=== PATIENT | female | born 1955 | race Caucasian/White ===

== ENCOUNTER 2017-05-23 16:14 | Outpatient (CLI) | payer MEDICARE ==
--- NOTE | 2017-05-23 20:20 | XRAY Report ---
EXAM: CHEST RADIOGRAPHY EXAM DATE: 05/23/2017 04:31 PM. CLINICAL HISTORY: Chest pressure. Dyspnea. COMPARISON: 03/24/2016. TECHNIQUE: 2 views. FINDINGS: Lungs/Pleura: No focal opacities evident. No pleural effusion. No pneumothorax. Normal volumes. Mediastinum: Heart and mediastinal contours are unremarkable. Other: No compression fractures. IMPRESSION: Normal 2-view chest radiography. [facility] Referring Provider Line: [phone] SITE ID: [id number]
== END 2017-05-23 16:15 | disposition home or self-care (01) ==
LOC: DI 16:14
PROVIDERS: ATTEND Internal Medicine
DX: R06.00 Dyspnea, unspecified (principal)
CPT/HCPCS: 71020

== ENCOUNTER 2017-05-30 08:00 | Outpatient (CLI) | payer MEDICARE ==
[2017-05-30 13:17] LABS: ABG ANALYSIS TIME 1309; ABG PCO2 37 mmHg (34-45); ABG PH 7.42 (7.35-7.45); ABG PO2 104 mmHg (80-100)
[2017-05-30 13:18] LABS: ABG HCO3 23.8 mmol/L (22.0-26.0); ABG OXYGEN SATURATION 98 % (94-98); ALLEN TEST POSITIVE
[2017-05-30 13:19] LABS: ABG ROOM AIR YES; ABG SITE OF DRAW RIGHT RADIAL
== END 2017-05-30 08:01 | disposition home or self-care (01) ==
LOC: LAB.R 08:00
PROVIDERS: ATTEND Internal Medicine
DX: R06.00 Dyspnea, unspecified (principal)
CPT/HCPCS: 82803

== ENCOUNTER 2017-05-30 12:48 | Outpatient (CLI) | payer MEDICARE ==
[2017-05-30] MEDS ORDERED: ALBUTEROL NEB 2.5 MG/3 ML INH ONE (14:00)
== END 2017-05-30 12:49 | disposition home or self-care (01) ==
LOC: RT 12:48
PROVIDERS: ATTEND Internal Medicine
DX: R06.00 Dyspnea, unspecified (principal)
CPT/HCPCS: 36600; 94010

== ENCOUNTER 2017-10-12 07:28 | Outpatient (CLI) | payer MEDICARE ==
[2017-10-12 08:03] LABS: BASOPHILS % (AUTO) 0.4 %; EOSINOPHILS # (AUTO) 0.1 10^3/uL (0.0-0.7); EOSINOPHILS % (AUTO) 1.5 %; HGB - HEMOGLOBIN 13.3 g/dL (12.0-16.0); LYMPHOCYTES # (AUTO) 1.4 10^3/uL (1.5-3.5); LYMPHOCYTES % (AUTO) 16.7 %; MEAN CORPUSCULAR HEMOGLOBIN 29.9 pg (27.0-31.0); MEAN CORPUSCULAR HGB CONC 34.4 g/dL (32.0-36.0); MEAN PLATELET VOLUME 6.4 fL (7.9-10.8); MONOCYTES # (AUTO) 0.6 10^3/uL (0.0-1.0); MONOCYTES % (AUTO) 7.5 %; NEUTROPHILS # (AUTO) 6.1 10^3/uL (1.5-6.6); NEUTROPHILS % (AUTO) 73.9 %; PLT - PLATELET COUNT 382 10^3/uL (130-450); RED BLOOD COUNT 4.45 10^6/uL (4.20-5.40); WHITE BLOOD COUNT 8.2 x10^3/uL (4.8-10.8)
[2017-10-12 08:08] LABS: HB2 TOTAL 14.3 g/dL; HEMOGLOBIN A1C 0.56 g/dL; HEMOGLOBIN A1C % 5.7 % (4.6-6.2)
[2017-10-12 08:16] LABS: ALBUMIN 4.5 g/dL (3.2-5.5); ALBUMIN/GLOBULIN RATIO 1.5 (1.0-2.2); ALKALINE PHOSPHATASE 72 IU/L (42-121); ALT ALANINE AMINOTRANSFERASE 18 IU/L (10-60); AST ASPARTATE AMINOTRANSFERASE 23 IU/L (10-42); BILIRUBIN,TOTAL 0.7 mg/dL (0.2-1.0); BUN - BLOOD UREA NITROGEN 8 mg/dL (6-20); CALCIUM 9.5 mg/dL (8.5-10.3); CARBON DIOXIDE - CO2 23 mmol/L (21-32); CHLORIDE 98 mmol/L (101-111); CHOLESTEROL 195 mg/dL; CREATININE 0.7 mg/dL (0.4-1.0); GFR - MDRD 84 (>89); GLUCOSE 117 mg/dL (70-100); HDL CHOLESTEROL 66 mg/dL; LDL CHOLESTEROL,CALCULATED 120 mg/dL; LDL/HDL RATIO 1.8 (<4.4); SODIUM 130 mmol/L (135-145); TOTAL PROTEIN 7.5 g/dL (6.7-8.2); VLDL CHOLESTEROL 9 mg/dL
[2017-10-12 09:06] LABS: THYROID STIMULATING HORMONE 1.18 uIU/mL (0.34-5.60)
[2017-10-12 09:10] LABS: FREE T4 (FREE THYROXINE) 1.34 ng/dL (0.58-1.64)
== END 2017-10-12 07:29 | disposition home or self-care (01) ==
LOC: LAB 07:28
PROVIDERS: ATTEND Internal Medicine
DX: Z00.00 Encounter for general adult medical examination without abnormal findings (principal); R53.83 Other fatigue; F32.9 Major depressive disorder, single episode, unspecified; F41.9 Anxiety disorder, unspecified; M06.9 Rheumatoid arthritis, unspecified; R73.01 Impaired fasting glucose; L71.9 Rosacea, unspecified
CPT/HCPCS: 36415; 80053; 80061; 82607; 83036; 84439; 84443; 84481; 85025; 86376

== ENCOUNTER 2018-08-15 12:56 | Outpatient (CLI) | payer MEDICARE ==
--- NOTE | 2018-08-15 15:40 | XRAY Report ---
Reason: NECK PAIN Procedure Date: 08/15/2018 Accession Number: [id number] / [id number] Procedure: XR - Neck Soft Tissue CPT Code: FULL RESULT: EXAM: SOFT TISSUE NECK RADIOGRAPHY EXAM DATE: 08/15/2018 01:18 PM. CLINICAL HISTORY: Neck pain. COMPARISONS: None. TECHNIQUE: 2 views. FINDINGS: Soft Tissues: There is a BB over the posterior midline of the neck at the level of C4-C5. There is a subtle 12 mm convex soft tissue density mass seen only on the lateral projection superimposing just posterior to the posterior muscles. No prevertebral soft tissue swelling. The epiglottis and aryepiglottic folds are unremarkable. No tonsillar or adenoidal enlargement. No radiopaque foreign body. Regional Skeleton: Unremarkable for age. Other: The visualized lung apices are clear. IMPRESSION: Indeterminate 12 mm soft tissue mass of the posterior neck as described. Specificity is limited on plain film radiographs and would favor further evaluation with cross-sectional imaging either ultrasound or CT with contrast. [facility]
== END 2018-08-15 12:57 | disposition home or self-care (01) ==
LOC: DI 12:56
PROVIDERS: ATTEND Internal Medicine
DX: R22.1 Localized swelling, mass and lump, neck (principal); M54.2 Cervicalgia
CPT/HCPCS: 70360

== ENCOUNTER 2018-08-28 15:48 | Outpatient (CLI) | payer MEDICARE ==
--- NOTE | 2018-08-29 13:38 | Ultrasound Report ---
Reason: MASS ON POSTERIOR NECK Procedure Date: 08/28/2018 Accession Number: [id number] / [id number] Procedure: US - Head or Neck Soft Tissue CPT Code: FULL RESULT: EXAM: FOCUS SOFT TISSUE NECK ULTRASOUND. EXAM DATE: 08/28/2018 04:27 PM. CLINICAL HISTORY: Mass on posterior neck. COMPARISON: None. TECHNIQUE: Real time sonographic imaging of the thyroid was performed by the guest relations officer. Multiple inventory representative static images were saved for review. FINDINGS: A palpable lump in the posterior neck was interrogated by grayscale and limited color Doppler ultrasound. Normal soft tissues are seen. No abnormal structures, mass or collection is identified. There is no abnormal blood flow by limited color Doppler. IMPRESSION: Normal study. [facility]
== END 2018-08-28 15:49 | disposition home or self-care (01) ==
LOC: DI 15:48
PROVIDERS: ATTEND Internal Medicine
DX: R22.1 Localized swelling, mass and lump, neck (principal); M54.2 Cervicalgia
CPT/HCPCS: 76536

== ENCOUNTER 2018-10-13 09:04 | Outpatient (CLI) | payer MEDICARE ==
--- NOTE | 2018-10-13 14:44 | MRI Report ---
Reason: NECK PAIN, MASS Procedure Date: 10/13/2018 Accession Number: [id number] / [id number] Procedure: MRI - Cervical Spine W/O CPT Code: FULL RESULT: EXAM: MRI CERVICAL SPINE WITHOUT CONTRAST EXAM DATE: 10/13/2018 09:51 AM. CLINICAL HISTORY: Neck pain, mass. COMPARISONS: None. TECHNIQUE: Multiplanar, multisequence T1-weighted and fluid-sensitive sequences of the cervical spine without contrast. Other: None. FINDINGS: Neurologic Structures: The visualized posterior fossa structures are unremarkable. No signal abnormality in the visualized spinal cord. Alignment: No scoliosis or spondylolisthesis. Bone Marrow: No gross fractures or bone lesions. No marrow edema. Interspace Levels/Facets: C1-C2: Unremarkable. C2-C3: Unremarkable. C3-C4: Unremarkable. C4-C5: Unremarkable. C5-C6: Some disk dehydration, broad-based disk bulge is seen. No central stenosis. Moderate bilateral foraminal stenosis. C6-C7: Broad-based disk bulge is seen. Prominent facets. No central or foraminal stenosis. C7-T1: Unremarkable. Musculature: Mild fatty atrophy of the multifidus muscle is present. Other: The paravertebral and prevertebral soft tissues are normal. In particular, focal area of concern marked with an MRI marker shows normal anatomy. No masses or nodules in this location. IMPRESSION: 1. Spinal cord, bones and marrow appear unremarkable. There is mild fatty atrophy of the multifidus muscle present. 2. C5-C6 show some disk dehydration. No central stenosis. Moderate bilateral foraminal stenosis. 3. C6-C7 shows a broad-based bulge, no stenosis. 4. C7-T1 is normal. [facility]
== END 2018-10-13 09:05 | disposition home or self-care (01) ==
LOC: DI 09:04
PROVIDERS: ATTEND Internal Medicine
DX: M50.322 Other cervical disc degeneration at C5-C6 level (principal); M48.02 Spinal stenosis, cervical region; G12.9 Spinal muscular atrophy, unspecified
CPT/HCPCS: 72141

== ENCOUNTER 2019-06-16 15:34 | Outpatient (CLI) | payer MEDICARE ==
--- NOTE | 2019-06-16 16:33 | XRAY Report ---
Reason: COUGH Procedure Date: 06/16/2019 Accession Number: [id number] / [id number] Procedure: XR - Chest 2 View X-Ray CPT Code: 78091 FULL RESULT: EXAM: CHEST RADIOGRAPHY EXAM DATE: 06/16/2019 04:22 PM. CLINICAL HISTORY: Cough COMPARISON: CHEST 2 VIEW PA/LAT 05/23/2017 4:22 PM. TECHNIQUE: 2 views. FINDINGS: Lungs/Pleura: No focal opacities evident. No pleural effusion. No pneumothorax. Normal volumes. A nodular density projected in left upper peripheral hemithorax is likely artifactual. Mediastinum: Heart and mediastinal contours are unremarkable. Other: None. IMPRESSION: A nodular density projected in left upper peripheral hemithorax is likely artifactual. A repeat radiograph to be considered after removal of any external monitoring device or clothing. No acute cardiopulmonary process. [facility] The call report notification system was initiated by Dr. Thuy Blackwell at 04:32 PM on 06/16/2019. ADDENDUM: 06/16/19 16:33 The above call report findings were discussed with Dr Torres by Dr. Thuy Blackwell at 04:33 PM on 06/16/2019.
== END 2019-06-16 15:35 | disposition home or self-care (01) ==
LOC: DI 15:34
PROVIDERS: ATTEND Internal Medicine
DX: R05 Cough (principal)
CPT/HCPCS: 71046

== ENCOUNTER 2019-06-29 17:04 | Outpatient (CLI) | payer MEDICARE ==
--- NOTE | 2019-06-29 19:53 | XRAY Report ---
Reason: COUGH, CHILLS WITHOUT FEVER Procedure Date: 06/29/2019 Accession Number: [id number] / [id number] Procedure: XR - Chest 2 View X-Ray CPT Code: 71507 FULL RESULT: EXAM: CHEST RADIOGRAPHY EXAM DATE: 06/29/2019 05:28 PM. CLINICAL HISTORY: COUGH, CHILLS WITHOUT FEVER. COMPARISON: CHEST 2 VIEW 06/16/2019 4:17 PM. TECHNIQUE: 2 views. FINDINGS: Lungs/Pleura: No focal opacities evident. No pleural effusion. No pneumothorax. Normal volumes. Mediastinum: Heart and mediastinal contours are unremarkable. Other: None. IMPRESSION: Negative 2-view chest radiography. [facility]
== END 2019-06-29 17:05 | disposition home or self-care (01) ==
LOC: DI 17:04
PROVIDERS: ATTEND Internal Medicine
DX: R05 Cough (principal); R68.83 Chills (without fever)
CPT/HCPCS: 71046

== ENCOUNTER 2020-07-03 11:22 | Emergency (ER) | payer MEDICAID ==
[2020-07-03 11:34] VITALS: BP 142/86
--- NOTE | 2020-07-03 11:58 | ED Physician Documentation ---
History of Present Illness - Stated complaint Stated Complaint: RASH - Chief complaint Chief Complaint: General - History obtained from History obtained from: Patient - History of Present Illness Timing: Prior to arrival - Additonal information Additional information: 64-year-old female advised to come to the emergency department for evaluation of reported fever and rash. She reports that 4 days ago she began having intermittent fevers as high as 101 at home, chills myalgias and fatigue. She noted that yesterday in the a.m. she had a mild rash on her right thigh. She was started on Lamictal approximately 3 weeks ago for history of bipolar disorder. She called her psychiatric provider this a.m. to discuss the fever and rash and was advised to come to the emergency department. Reports that she noted a non painful, non blistering rash on her right leg yesterday. On exam the rad is 3 separate small raised papule that surround a hair follicule. non pustular, non vesicular Patient denies chest pain or dyspnea. She does have a mild dry cough. No abdominal pain nausea vomiting or diarrhea. She denies urinary urgency or frequency. Past medical history includes a history of rheumatoid arthritis. She is not taking medications for control of this at this time. She denies any joint pain or joint swelling. She reports that she typically controls her intermittent flares with a short course of NSAID at home. Review of Systems Constitutional: reports: Fever, Chills, Myalgias, Fatigue. denies: Weight Loss, Sweats Eyes: reports: Reviewed and negative Ears: reports: Reviewed and negative Nose: reports: Reviewed and negative Throat: reports: Reviewed and negative Cardiac: reports: Reviewed and negative Respiratory: reports: Reviewed and negative GI: reports: Reviewed and negative : reports: Reviewed and negative Skin: reports: Rash Musculoskeletal: reports: Reviewed and negative Neurologic: reports: Reviewed and negative Psychiatric: reports: Reviewed and negative Endocrine: reports: Reviewed and negative PD PAST MEDICAL HISTORY - Past Medical History GI: GERD Musculoskeletal: Rheumatoid arthritis - Past Surgical History Past Surgical History: Yes 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 - Present Medications Home Medications: Ambulatory Orders Medication Instructions Recorded Confirmed Pyridostigmine [place] [Mestinon] 1 tab PO BID 05/06/16 05/06/16 - Allergies Allergies/Adverse Reactions: Allergies Allergy/AdvReac Type Severity Reaction Status Date / Time Aminoglycosides Allergy Unknown Verified 07/03/20 11:35 azithromycin [From Zithromax] Allergy Unknown Verified 07/03/20 11:35 ciprofloxacin [From Cipro] Allergy Unknown Verified 07/03/20 11:35 ciprofloxacin HCl * Allergy Unknown Verified 07/03/20 11:35 [From Cipro] gentamicin Allergy Unknown Verified 07/03/20 11:35 Penicillins Allergy Unknown Verified 07/03/20 11:35 procainamide Allergy Unknown Verified 07/03/20 11:35 Sulfa (Sulfonamide Allergy Unknown Verified 07/03/20 11:35 Antibiotics) - Social History Does the pt smoke?: No Smoking Status: Never smoker Does the pt drink ETOH?: No Does the pt have substance abuse?: No - Immunizations Immunizations are current?: Yes PD ED PE NORMAL - General General: Alert and oriented X 3, No acute distress, Well developed/nourished - HEENT HEENT: PERRL, EOMI, Ears normal, Moist mucous membranes, Pharynx benign - Neck Neck: Supple, no meningeal sign, No adenopathy - Cardiac Cardiac: No murmur, No gallop, Strong equal pulses - Respiratory Respiratory: No respiratory distress, Clear bilaterally - Abdomen Abdomen: Normal bowel sounds, Soft, Non tender, Non distended - Back Back: No CVA TTP, No spinal TTP - Derm Derm: Normal color, Warm and dry, No rash. No: Other (3 isolated small red papules on the anterior right thigh. These surround small hair follicles. negative Nikolsky's. Nonvesicular, nonpustular. No rash present within the oral mucosa back arms torso or elsewhere) - Extremities Extremities: No deformity - Neuro Neuro: Alert and oriented X 3, pharmacy benefits coordinator 2-12 intact, No motor deficit, Normal speech Eye Opening: Spontaneous Motor: Obeys Commands Verbal: Oriented GCS Score: 15 - Psych Psych: Normal mood Results - Vitals Vitals: Vital Signs - 24 hr 07/03/20 11:24 Temperature 39.2 C H Heart Rate 93 Respiratory 16 Rate Blood Pressure 142/86 H O2 Saturation 99 Oxygen O2 Source Room air PD MEDICAL DECISION MAKING - ED course Complexity details: reviewed results, considered differential, d/w patient ED course: 64-year-old female was advised to come to the emergency department for evaluation of fever, fatigue, chills and malaise for the last 3 days. She also noted a faint papular rash on her right anterior thigh this a.m. Her psychiatric provider was concerned that this may present as a Jackson-Richard syndrome or Lamictal associated rash. On exam she appears very well. Outside of the noted fever her cardiopulmonary exam is unremarkable. She has no tachycardia or hypotension. The constellation of symptoms is most consistent with a viral etiology. COVID-19 screening is pending. We will defer influenza screening or testing or treatment as she is outside the window of treatment. The rash on her anterior thigh are faint raised papules surrounding hair follicle. This may be a mild folliculitis but there does not appear to be any associated cellulitis. The rash is not painful and is nonvesicular my suspicion for acute shingles is also lower at this time. She was advised to be discharged home judicious use of fluids and antipyretic if necessary. She is to return to the emergency department only for labored breathing chest pain any worsening of the rash or if she feels that her symptoms are not well controlled. Departure - Departure Disposition: 01 Home, Self Care Clinical Impression: Screening for viral disease Fever Qualifiers: Fever type: unspecified Qualified Code(s): R50.9 - Fever, unspecified Condition: Stable Record reviewed to determine appropriate education?: Yes Follow-Up: Marguerite Alvarez MD [Primary Care Provider] - Within 1 week Comments: Anabelle I hope that you are feeling better soon. At this time I am most concerned that the cause of your rash may be a viral illness such as COVID-19. We are sending the screening test this afternoon. You must go home and remain in quarantine until your results are known. We will only call you if the result is positive. However you may sign up and look for the chart online through [employer]. I think it is continuing it is safe for you to continue to take the Lamictal. The rash does not appear typical of a rash usually seen with Lamictal. This is not Jackson-Richard's rash. If you find that your rash is worsening is accompanied by blisters or your fever does not improve or you have labored breathing or chest pain please return to the emergency department for a second look
== END 2020-07-03 12:56 | disposition home or self-care (01) ==
LOC: ED 11:22
DX: R50.9 Fever, unspecified (principal); R21 Rash and other nonspecific skin eruption; M06.9 Rheumatoid arthritis, unspecified; Z20.828 Contact with and (suspected) exposure to other viral communicable diseases
CPT/HCPCS: 99282; 99283

== ENCOUNTER 2020-07-16 16:32 | Outpatient (CLI) | payer MEDICAID, MEDICARE ==
--- NOTE | 2020-07-16 18:03 | XRAY Report ---
PROCEDURE: Chest 2 View X-Ray INDICATIONS: DYSPNEA, COUGH TECHNIQUE: 2 view(s) of the chest. COMPARISON: 06/29/2019. FINDINGS: Surgical changes and devices: None. Lungs and pleura: No pleural effusions or pneumothorax. Lungs are clear. Mediastinum: Mediastinal contours are normal. Heart size is normal. Bones and chest wall: No suspicious bony abnormalities. Soft tissues appear unremarkable. IMPRESSION: Stable examination of the chest without acute cardiopulmonary abnormalities. No focal co nsolidation. Reviewed by: Harshil Balderrama MD on 07/16/2020 6:02 PM PDT Approved by: Harshil Balderrama MD on 07/16/2020 6:02 PM PDT Station ID: [id number]
== END 2020-07-16 16:33 | disposition home or self-care (01) ==
LOC: DI 16:32
PROVIDERS: ATTEND Internal Medicine
DX: R06.00 Dyspnea, unspecified (principal); R05 Cough
CPT/HCPCS: 71046

== ENCOUNTER 2020-08-15 07:31 | Outpatient (CLI) | payer MEDICARE ==
[2020-08-15 08:13] LABS: BASOPHILS % (AUTO) 0.4 %; HGB - HEMOGLOBIN 11.9 g/dL (12.0-16.0); LYMPHOCYTES # (AUTO) 1.9 10^3/uL (1.5-3.5); LYMPHOCYTES % (AUTO) 27.5 %; MEAN CORPUSCULAR HEMOGLOBIN 30.2 pg (27.0-31.0); MEAN CORPUSCULAR HGB CONC 32.7 g/dL (32.0-36.0); MEAN CORPUSCULAR VOLUME 92.4 fL (81.0-99.0); MEAN PLATELET VOLUME 8.4 fL (7.9-10.8); MONOCYTES # (AUTO) 0.5 10^3/uL (0.0-1.0); MONOCYTES % (AUTO) 7.5 %; NEUTROPHILS # (AUTO) 4.4 10^3/uL (1.5-6.6); NEUTROPHILS % (AUTO) 64.3 %; PLT - PLATELET COUNT 298 10^3/uL (130-450); RED BLOOD COUNT 3.94 10^6/uL (4.20-5.40); WHITE BLOOD COUNT 6.8 x10^3/uL (4.8-10.8)
[2020-08-15 08:33] LABS: ALBUMIN 3.8 g/dL (3.2-5.5); ALBUMIN/GLOBULIN RATIO 1.5 (1.0-2.2); ALKALINE PHOSPHATASE 70 IU/L (42-121); ALT ALANINE AMINOTRANSFERASE 15 IU/L (10-60); AST ASPARTATE AMINOTRANSFERASE 19 IU/L (10-42); BILIRUBIN,TOTAL 0.5 mg/dL (0.2-1.0); BUN - BLOOD UREA NITROGEN 27 mg/dL (6-20); CALCIUM 9.8 mg/dL (8.5-10.3); CARBON DIOXIDE - CO2 26 mmol/L (21-32); CHLORIDE 106 mmol/L (101-111); CHOL/HDL RATIO 2.8 (<4.4); CHOLESTEROL 196 mg/dL; CREATININE 0.9 mg/dL (0.4-1.0); GLUCOSE 110 mg/dL (70-100); HDL CHOLESTEROL 71 mg/dL; SODIUM 139 mmol/L (135-145); TOTAL PROTEIN 6.4 g/dL (6.7-8.2)
[2020-08-15 08:36] LABS: CRP HIGH SENSITIVITY < 0.5 mg/L
[2020-08-15 08:45] LABS: THYROID STIMULATING HORMONE 2.37 uIU/mL (0.34-5.60)
[2020-08-15 08:46] LABS: FREE T3 2.88 pg/mL (2.5-3.9)
[2020-08-15 08:47] LABS: FREE T4 (FREE THYROXINE) 0.8 ng/dL (0.58-1.64)
[2020-08-15 10:45] LABS: HEMOGLOBIN A1c% 5.7 % (4.27-6.07)
== END 2020-08-15 07:32 | disposition home or self-care (01) ==
LOC: LAB 07:31
PROVIDERS: ATTEND Internal Medicine
DX: Z00.00 Encounter for general adult medical examination without abnormal findings (principal); R73.01 Impaired fasting glucose; E03.9 Hypothyroidism, unspecified; E78.00 Pure hypercholesterolemia, unspecified; L71.9 Rosacea, unspecified; Z13.6 Encounter for screening for cardiovascular disorders; Z79.899 Other long term (current) drug therapy
CPT/HCPCS: 36415; 80053; 80061; 82306; 82626; 83036; 83721; 84439; 84443; 84481; 85025; 85651; 86141

== ENCOUNTER 2021-02-25 11:46 | Outpatient (CLI) | payer MEDICARE | END 2021-02-25 23:59 | disposition home or self-care (01) | LOC: LAB.N 11:46 | PROVIDERS: ATTEND Family Medicine | DX: R06.09 Other forms of dyspnea (principal); M05.9 Rheumatoid arthritis with rheumatoid factor, unspecified | CPT/HCPCS: 36415; 84484; 85651 ==

== ENCOUNTER 2021-10-30 01:27 | Emergency (ER) | payer MEDICARE ==
--- NOTE | 2021-10-30 02:27 | ED Physician Documentation ---
PD HPI DYSPNEA - Stated complaint Stated Complaint: SOA, - Chief complaint Chief Complaint: Resp - History obtained from History obtained from: Patient - History of Present Illness Timing - onset: Other (at least six weeks (per patient)) Pain level max: 0 Pain level now: 0 Associated symptoms: Cough. No: Fever, Wheezing, Chest pain / discomfort, Bilateral edema, Unilateral edema Recently seen: Not recently seen - Additional information Additional information: c/o at least six weeks of dry cough with occasional post-tussive emesis, fatigue. Review of Systems Constitutional: reports: Reviewed and negative Cardiac: reports: Chest pain / pressure (intermittent/episodic anterior chest discomfort over past few weeks). denies: Palpitations, Pedal edema Respiratory: reports: Reviewed and negative GI: reports: Vomiting (occasional post-tussive). 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: section - Present Medications Home Medications: Ambulatory Orders Medication Instructions Recorded Confirmed QUEtiapine [SEROquel] 10/30/21 lamoTRIgine [Lamictal Xr] 10/30/21 - Allergies Allergies/Adverse Reactions: Allergies Allergy/AdvReac Type Severity Reaction Status Date / Time Aminoglycosides Allergy Unknown Verified 10/30/21 01:57 azithromycin [From Zithromax] Allergy Unknown Verified 10/30/21 01:57 ciprofloxacin [From Cipro] Allergy Unknown Verified 10/30/21 01:57 ciprofloxacin HCl * Allergy Unknown Verified 10/30/21 01:57 [From Cipro] gentamicin Allergy Unknown Verified 10/30/21 01:57 Penicillins Allergy Unknown Verified 10/30/21 01:57 procainamide Allergy Unknown Verified 10/30/21 01:57 Sulfa (Sulfonamide Allergy Unknown Verified 10/30/21 01:57 Antibiotics) - Social History Does the pt smoke?: No Smoking Status: Never smoker Does the pt drink ETOH?: No Does the pt have substance abuse?: No - Immunizations Immunizations are current?: Yes - POLST Patient has POLST: No PD ED PE NORMAL - Vitals Vital signs reviewed: Yes - General General: Alert and oriented X 3, No acute distress, Well developed/nourished - Cardiac Cardiac: RRR, No gallop, No rub - Respiratory Respiratory: No respiratory distress, Clear bilaterally - Abdomen Abdomen: Soft, Non tender - Derm Derm: Normal color, Warm and dry - Extremities Extremities: No edema Results - Vitals Vitals: Oxygen O2 Source Room air - EKG (time done) No standard instances Rate: Rate (enter#) (77) Rhythm: NSR Felt: Normal Intervals: Normal LA QRS: Normal Ischemia: Normal ST segments - Labs Labs: Laboratory Tests 10/30/21 10/30/21 03:14 03:14 WBC 9.1 RBC 4.49 Hgb 13.3 Hct 41.4 MCV 92.2 MCH 29.6 MCHC 32.1 RDW 13.2 Plt Count 348 MPV 8.4 Neut # (Auto) 5.6 Lymph # (Auto) 2.5 Ralls # (Auto) 0.7 Eos # (Auto) 0.3 Baso # (Auto) 0.1 Absolute Nucleated RBC 0.00 Nucleated RBC % 0.0 Troponin I High Sens 4.6 - Rads (name of study) chest xray Radiology: Prelim report reviewed, See rad report PD MEDICAL DECISION MAKING - ED course Complexity details: reviewed results, re-evaluated patient, considered differential, d/w patient ED course: presents with six weeks of dry cough, fatigue. These are her chief, and only, complaints at this time. She says she is mostly concerned that symptoms have been going on for this long and not getting any better. She is in NAD and has unremarkable test results including EKG (performed due to patient saying, on ROS, that she has been having episodic, vague chest discomfort over past few weeks), CXR, and blood tests (CBC, troponin). Results are reviewed with patient and she plans to pursue follow up with her PCP. Return precautions discussed as well. Departure - Departure Disposition: 01 Home, Self Care Clinical Impression: Dyspnea Qualifiers: Dyspnea type: unspecified Qualified Code(s): R06.00 - Dyspnea, unspecified Condition: Good Instructions: ED Dyspnea Shortness of Breath, ED Hypertension Poss Follow-Up: Marguerite Alvarez MD [Primary Care Provider] - Comments: The results of the tests performed tonight are unremarkable. This is, of course, reassuring, but this also means there is no apparent cause for your symptoms at this time. Follow up with your primary care provider for reevaluation for your symptoms as well as your elevated blood pressure readings Discharge Date/Time: 10/30/21 04:33
[2021-10-30 03:19] LABS: BASOPHILS # (AUTO) 0.1 10^3/uL (0.0-0.1); BASOPHILS % (AUTO) 0.7 %; EOSINOPHILS # (AUTO) 0.3 10^3/uL (0.0-0.7); EOSINOPHILS % (AUTO) 3.2 %; HCT - HEMATOCRIT 41.4 % (37.0-47.0); HGB - HEMOGLOBIN 13.3 g/dL (12.0-16.0); LYMPHOCYTES # (AUTO) 2.5 10^3/uL (1.5-3.5); LYMPHOCYTES % (AUTO) 27.1 %; MEAN CORPUSCULAR HEMOGLOBIN 29.6 pg (27.0-31.0); MEAN CORPUSCULAR HGB CONC 32.1 g/dL (32.0-36.0); MEAN CORPUSCULAR VOLUME 92.2 fL (81.0-99.0); MEAN PLATELET VOLUME 8.4 fL (7.9-10.8); MONOCYTES # (AUTO) 0.7 10^3/uL (0.0-1.0); MONOCYTES % (AUTO) 7.6 %; NEUTROPHILS # (AUTO) 5.6 10^3/uL (1.5-6.6); NEUTROPHILS % (AUTO) 61.2 %; PLT - PLATELET COUNT 348 10^3/uL (130-450); RED BLOOD COUNT 4.49 10^6/uL (4.20-5.40); RED CELL DISTRIBUTION WIDTH 13.2 % (12.0-15.0); WHITE BLOOD COUNT 9.1 x10^3/uL (4.8-10.8)
[2021-10-30 04:32] VITALS: BP 155/87
--- NOTE | 2021-10-30 07:41 | XRAY Report ---
PROCEDURE: Chest 2 View X-Ray INDICATIONS: dyspnea TECHNIQUE: 2 views of the chest. COMPARISON: 07/16/20. FINDINGS: Surgical changes and devices: None. Lungs and pleura: No pleural effusions or pneumothorax. Lungs are clear. Mediastinum: Mediastinal contours are normal. Heart size is normal. Bones and chest wall: No suspicious bony abnormalities. Soft tissues appear unremarkable. IMPRESSION: 1. No acute cardiopulmonary disease. Reviewed by: Mal Nur MD on 10/30/2021 7:39 AM [facility] Approved by: Mal Nur MD on 10/30/2021 7:39 AM [facility] Station ID: [id number]
== END 2021-10-30 04:33 | disposition home or self-care (01) ==
LOC: ED 01:27
DX: R06.00 Dyspnea, unspecified (principal)
CPT/HCPCS: 36415; 84484; 85025; 93005; 99283; 99284

== ENCOUNTER 2022-04-27 13:51 | Outpatient (CLI) | payer MEDICARE ==
[2022-04-27 18:41] LABS: BILIRUBIN,URINE NEGATIVE (NEGATIVE); GLUCOSE, URINE (UA) NEGATIVE (NEGATIVE); KETONES,URINE (UA) NEGATIVE (NEGATIVE); LEUKOCYTE ESTERASE, URINE NEGATIVE (NEGATIVE); NITRITE,URINE NEGATIVE (NEGATIVE); OCCULT BLOOD,URINE NEGATIVE (NEGATIVE); PH,URINE 7.5 PH (5.0-7.5); PROTEIN,URINE NEGATIVE (NEGATIVE); UROBILINOGEN,URINE 0.2 (NORMAL) E.U./dL (NORMAL)
[2022-04-27 18:48] LABS: CLARITY,URINE CLEAR (CLEAR)
[2022-04-27 18:55] LABS: BACTERIA,URINE None Seen /HPF (None Seen); RBC,URINE 0-5 /HPF (0-5); SQUAMOUS EPITHELIAL CELL,UR NONE SEEN (<= Few); WBC,URINE 0-3 /HPF (0-5)
== END 2022-04-27 13:52 | disposition home or self-care (01) ==
LOC: LAB 13:51
PROVIDERS: ATTEND Internal Medicine
DX: N81.4 Uterovaginal prolapse, unspecified (principal); R30.0 Dysuria
CPT/HCPCS: 81001; 87086

== ENCOUNTER 2022-07-09 08:00 | Outpatient (CLI) | payer MEDICARE ==
[2022-07-09 22:13] LABS: BACTERIAL VAGINOSIS DNA NEGATIVE (NEGATIVE); CANDIDA GLABRATA DNA NEGATIVE (NEGATIVE); CANDIDA GROUP DNA NEGATIVE (NEGATIVE); CANDIDA KRUSEI DNA NEGATIVE (NEGATIVE); TRICHOMONAS VAGINALIS DNA NEGATIVE (NEGATIVE)
== END 2022-07-09 23:59 | disposition home or self-care (01) ==
LOC: LAB.WC 08:00
PROVIDERS: ATTEND Obstetrics & Gynecology
DX: N89.8 Other specified noninflammatory disorders of vagina (principal)
CPT/HCPCS: 81514

== ENCOUNTER 2022-10-07 08:00 | Outpatient (CLI) | payer MEDICARE ==
[2022-10-07 23:18] LABS: BACTERIAL VAGINOSIS DNA NEGATIVE (NEGATIVE); CANDIDA GLABRATA DNA NEGATIVE (NEGATIVE); CANDIDA GROUP DNA NEGATIVE (NEGATIVE); CANDIDA KRUSEI DNA NEGATIVE (NEGATIVE); TRICHOMONAS VAGINALIS DNA NEGATIVE (NEGATIVE)
== END 2022-10-07 23:59 | disposition home or self-care (01) ==
LOC: LAB.WC 08:00
PROVIDERS: ATTEND Obstetrics & Gynecology
DX: L29.8 Other pruritus (principal)
CPT/HCPCS: 81514

== ENCOUNTER 2022-10-10 13:09 | Emergency (ER) | payer MEDICARE ==
[2022-10-10 13:17] VITALS: BP 145/91
--- NOTE | 2022-10-10 13:20 | ED Physician Documentation ---
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 : None HEENT: None Psych: None Musculoskeletal: Rheumatoid arthritis Derm: None - Past Surgical History Past Surgical History: Yes Ortho: Other /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 - Present Medications Home Medications: Ambulatory Orders Medication Instructions Recorded Confirmed QUEtiapine [SEROquel] 10/30/21 lamoTRIgine [Lamictal Xr] 10/30/21 Doxycycline Hyclate 100 mg PO BID 7 Days #14 cap 10/10/22 HYDROcod/ACETAM 5/325 [[place] 5/325] 1 ea PO Q8H PRN #10 tablet 10/10/22 - Allergies Allergies/Adverse Reactions: Allergies Allergy/AdvReac Type Severity Reaction Status Date / Time Aminoglycosides Allergy Unknown Verified 10/30/21 01:57 azithromycin [From Zithromax] Allergy Unknown Verified 10/30/21 01:57 ciprofloxacin [From Cipro] Allergy Unknown Verified 10/30/21 01:57 ciprofloxacin HCl * Allergy Unknown Verified 10/30/21 01:57 [From Cipro] gentamicin Allergy Unknown Verified 10/30/21 01:57 Penicillins Allergy Unknown Verified 10/30/21 01:57 procainamide Allergy Unknown Verified 10/30/21 01:57 Sulfa (Sulfonamide Allergy Unknown Verified 10/30/21 01:57 Antibiotics) - Social History Does the pt smoke?: No Smoking Status: Never smoker Does the pt drink ETOH?: No Does the pt have substance abuse?: No - Immunizations Immunizations are current?: Yes - POLST Patient has POLST: No PD ED PE NORMAL - Vitals Vital signs reviewed: Yes - General General: Alert and oriented X 3, Well developed/nourished, Other (appears in pain from arm and thighs. ) - Derm Derm: Normal color, Warm and dry - Extremities Extremities: Other (both thighs with abrasions and lacs, abrasions mainly left anteromedial thigh. Lacs right thigh, with one in particular that is open enough for suturing. Right forearm with several puncture lacs, with 2 that are still bleeding lightly and need suturing. ROM and use of hand/wrist without muscle pain.) - Neuro Neuro: Alert and oriented X 3, No motor deficit, No sensory deficit, Normal speech Results - Vitals Vitals: Vital Signs - 24 hr 10/10/22 13:16 Temperature 37.1 C Heart Rate 102 H Respiratory 18 Rate Blood Pressure 145/91 H O2 Saturation 100 Oxygen O2 Source Room air Procedures - Laceration (location) right forearm Length in cm: 2.5 (2 lacs from bites, 1 cm and 1.5 cm) Wound type: Irregular, Into subcut fat, Clean Neurovascular status: Sensory intact, Motor intact, Vascular intact Tendon involvement: Tendon intact Anesthesia: Lidocaine 1% with epi Wound preparation: Irrigated copiously NS (by live truck technician), Wound explored, To the base Skin layer closure: Nylon, Interrupted, Size #-0 - enter number (4), Sutures - enter # (5) Other: Patient tolerated well, No complications, Neurovascular intact, Dressing applied, Tetanus UTD right thigh Length in cm: 1.5 Wound type: Flap, Into subcut fat, Clean Neurovascular status: Sensory intact, Motor intact Anesthesia: Lidocaine 1% with epi Wound preparation: Irrigated copiously NS (by live truck technician), Wound explored, To the base Skin layer closure: Nylon, Interrupted, Size #-0 - enter number (4) Other: Patient tolerated well, No complications, Neurovascular intact, Dressing applied, Tetanus UTD PD Medical Decision Making - ED course Complexity details: considered differential (nursing contacted PD to report the bites. They will contact patient. ), d/w patient Drug Therapy Requiring Monitoring for Toxicity: she is allergic to PCN, so will go with Doxycycline for the bite wounds. Departure - Departure Disposition: 01 Home, Self Care Clinical Impression: Dog bite of multiple sites Condition: Stable Record reviewed to determine appropriate education?: Yes Instructions: ED Bite Dog Follow-Up: Marguerite Alvarez MD [Primary Care Provider] - Prescriptions: Doxycycline Hyclate 100 mg PO BID 7 Days #14 cap HYDROcod/ACETAM 5/325 [[place] 5/325] 1 ea PO Q8H PRN #10 tablet PRN Reason: Pain Comments: It is okay to wash and shower. Clean off the wound twice a day with soap and water, or peroxide and water. Apply some antibiotic ointment to it to keep it moist. Also to watch for signs of infection such as purulence, redness or increasing pain. Return to your primary care or the ER at the specified time for suture removal. Suture removal 8 to 10 days. Tylenol every 4-6 hours if needed for pain. Add half to 1 tablet hydrocodone every 4-6 hours if needed for worse pain. This would be intended short-term. Doxycycline antibiotic twice daily for a week to reduce the chance of infection. I sent your prescriptions to [facility] in [place]. I am prescribing a short course of narcotic pain medication for you. These are potentially dangerous and addictive medications that should be used carefully. These medications may constipate you. Take an diyc-hgi-dljpage stool softener such as docusate twice daily with plenty of water while taking these medications. If you go 24 hours without a bowel movement, take [id number]-[id number] MiraLAX, per package instructions. Do not drink or drive while taking these medications. If you received narcotic or sedating medications while in the emergency department do not drive for 24 hours. Store this medication in a safe, secure place and out of reach of children. It is a violation of federal law to give or sell this medication to another person or to use in a manner other than prescribed. The ED will not refill narcotic prescriptions, including prescriptions lost or stolen. You can dispose of unwanted medications at the [facility] office or at several pharmacies such as [facility]. Discharge Date/Time: 10/10/22 15:33
[2022-10-10] MEDS ORDERED: HYDROcod/ACETAM 5/325 MG TABLET PO STA (13:39)
[2022-10-10] MEDS ORDERED: ACETAMINOPHEN 500 MG TABLET PO STA (13:40)
[2022-10-10] MEDS ORDERED: DOXYCYCLINE 100 MG TABLET PO STA (13:41)
[2022-10-10] MEDS ORDERED: LIDOCAINE 1%-EPI 1:100000 20 ML MDV SUBQ STA (13:56)
== END 2022-10-10 15:33 | disposition home or self-care (01) ==
LOC: ED 13:09
DX: S51.851A Open bite of right forearm, initial encounter (principal); S71.159A Open bite, unspecified thigh, initial encounter; W54.0XXA Bitten by dog, initial encounter
CPT/HCPCS: 12002; 99282; A9270

== ENCOUNTER 2023-01-19 15:41 | Outpatient (CLI) | payer MEDICARE ==
--- NOTE | 2023-01-20 08:47 | XRAY Report ---
PROCEDURE: Femur RT INDICATIONS: RIGHT THIGH PAIN, DOG BITES TECHNIQUE: 2 views of the femur were acquired. COMPARISON: None. FINDINGS: Bones: No fractures or dislocations. No suspicious bony lesions. Soft tissues: No suspicious soft tissue calcifications . IMPRESSION: No acute bony abnormality. If symptoms persist, follow-up radiographs and/or CT or MRI may be helpful for further evaluation. Reviewed by: Jimmy Silva MD on 01/20/2023 8:45 AM PDT Approved by: Jimmy Silva MD on 01/20/2023 8:45 AM PDT Station ID: [id number]
== END 2023-01-19 15:42 | disposition home or self-care (01) ==
LOC: DI.WOS 15:41
PROVIDERS: ATTEND Physician Assistant Surgical
DX: M79.604 Pain in right leg (principal)

== ENCOUNTER 2023-01-27 07:30 | Outpatient (CLI) | payer MEDICARE ==
[2023-01-27 08:01] LABS: ALBUMIN 4.3 g/dL (3.2-5.5); ALBUMIN/GLOBULIN RATIO 1.5 (1.0-2.2); ALKALINE PHOSPHATASE 92 IU/L (42-121); ALT ALANINE AMINOTRANSFERASE 15 IU/L (10-60); AST ASPARTATE AMINOTRANSFERASE 29 IU/L (10-42); BILIRUBIN,TOTAL 0.4 mg/dL (0.2-1.0); BUN - BLOOD UREA NITROGEN 12 mg/dL (6-20); CALCIUM 9.2 mg/dL (8.5-10.3); CARBON DIOXIDE - CO2 26 mmol/L (21-32); CHLORIDE 102 mmol/L (101-111); CHOL/HDL RATIO 2.5 (<4.4); CHOLESTEROL 200 mg/dL; CREATININE 0.9 mg/dL (0.4-1.0); GFR - MDRD 62 (>89); GLUCOSE 115 mg/dL (70-100); HDL CHOLESTEROL 80 mg/dL; SODIUM 137 mmol/L (135-145); TOTAL PROTEIN 7.1 g/dL (6.7-8.2); TRIGLYCERIDES 14 mg/dL
[2023-01-27 08:23] LABS: ESTIMATED AVERAGE GLUCOSE 123 mg/dL (70-100); HEMOGLOBIN A1c% 5.9 % (4.27-6.07)
== END 2023-01-27 07:31 | disposition home or self-care (01) ==
LOC: LAB 07:30
PROVIDERS: ATTEND Psychiatry & Neurology Psychiatry
DX: Z79.899 Other long term (current) drug therapy (principal); F31.81 Bipolar II disorder
CPT/HCPCS: 36415; 80053; 80061; 80175; 83036; 83721

== ENCOUNTER 2023-02-02 08:18 | Outpatient (CLI) | payer MEDICARE ==
[2023-02-02 10:02] LABS: ALBUMIN 3.9 g/dL (3.2-5.5); ALBUMIN/GLOBULIN RATIO 1.3 (1.0-2.2); ALKALINE PHOSPHATASE 105 IU/L (42-121); ALT ALANINE AMINOTRANSFERASE 19 IU/L (10-60); AST ASPARTATE AMINOTRANSFERASE 21 IU/L (10-42); BILIRUBIN,TOTAL 0.5 mg/dL (0.2-1.0); BUN - BLOOD UREA NITROGEN 19 mg/dL (6-20); CALCIUM 10.1 mg/dL (8.5-10.3); CARBON DIOXIDE - CO2 26 mmol/L (21-32); CHLORIDE 109 mmol/L (101-111); CHOL/HDL RATIO 2.8 (<4.4); CHOLESTEROL 197 mg/dL; CREATININE 0.9 mg/dL (0.4-1.0); GFR - MDRD 62 (>89); GLUCOSE 114 mg/dL (70-100); HDL CHOLESTEROL 71 mg/dL; LDL CHOLESTEROL,CALCULATED 116 mg/dL; LDL/HDL RATIO 1.6 (<4.4); POTASSIUM 4.6 mmol/L (3.5-5.0); SODIUM 141 mmol/L (135-145); TRIGLYCERIDES 48 mg/dL; VLDL CHOLESTEROL 10 mg/dL
[2023-02-02 10:49] LABS: ESTIMATED AVERAGE GLUCOSE 126 mg/dL (70-100)
== END 2023-02-02 08:19 | disposition home or self-care (01) ==
LOC: LAB 08:18
PROVIDERS: ATTEND Psychiatry & Neurology Psychiatry
DX: Z79.899 Other long term (current) drug therapy (principal); F31.81 Bipolar II disorder
CPT/HCPCS: 36415; 80053; 80061; 80175; 83036; 83721

== ENCOUNTER 2023-02-26 08:15 | Outpatient (CLI) | payer MEDICARE | END 2023-02-26 08:16 | disposition home or self-care (01) | LOC: LAB 08:15 | PROVIDERS: ATTEND Psychiatry & Neurology Psychiatry | DX: F31.81 Bipolar II disorder (principal); Z51.81 Encounter for therapeutic drug level monitoring | CPT/HCPCS: 36415; 80175 ==

== ENCOUNTER 2023-04-08 10:04 | Outpatient (CLI) | payer MEDICARE | END 2023-04-08 10:05 | disposition home or self-care (01) | LOC: LAB 10:04 | PROVIDERS: ATTEND Psychiatry & Neurology Psychiatry | DX: F31.81 Bipolar II disorder (principal); Z51.81 Encounter for therapeutic drug level monitoring; Z79.899 Other long term (current) drug therapy | CPT/HCPCS: 36415; 80175 ==

== ENCOUNTER 2023-05-18 09:36 | Outpatient (CLI) | payer MEDICARE ==
[2023-05-18 10:28] LABS: LITHIUM 0.63 mmol/L
[2023-05-18 10:44] LABS: ESTIMATED AVERAGE GLUCOSE 117 mg/dL (70-100); HEMOGLOBIN A1c% 5.7 % (4.27-6.07)
== END 2023-05-18 09:37 | disposition home or self-care (01) ==
LOC: LAB 09:36
PROVIDERS: ATTEND Psychiatry & Neurology Psychiatry
DX: F31.81 Bipolar II disorder (principal); Z51.81 Encounter for therapeutic drug level monitoring; Z79.899 Other long term (current) drug therapy
CPT/HCPCS: 36415; 80178; 83036

== ENCOUNTER 2023-07-09 08:00 | Outpatient (CLI) | payer MEDICARE ==
[2023-07-09 15:41] LABS: BILIRUBIN,URINE NEGATIVE (NEGATIVE); GLUCOSE, URINE (UA) NEGATIVE (NEGATIVE); KETONES,URINE (UA) NEGATIVE (NEGATIVE); LEUKOCYTE ESTERASE, URINE NEGATIVE (NEGATIVE); NITRITE,URINE NEGATIVE (NEGATIVE); OCCULT BLOOD,URINE NEGATIVE (NEGATIVE); PROTEIN,URINE NEGATIVE (NEGATIVE); UROBILINOGEN,URINE 0.2 (NORMAL) E.U./dL (NORMAL)
[2023-07-09 15:43] LABS: CLARITY,URINE CLEAR (CLEAR)
[2023-07-09 15:53] LABS: BACTERIA,URINE None Seen /HPF (None Seen); RBC,URINE 0-5 /HPF (0-5); SQUAMOUS EPITHELIAL CELL,UR RARE Squamous (<= Few); WBC,URINE 0-3 /HPF (0-5)
== END 2023-07-09 23:59 | disposition home or self-care (01) ==
LOC: LAB 08:00
PROVIDERS: ATTEND Nurse Practitioner
DX: R30.0 Dysuria (principal)
CPT/HCPCS: 81001; 81002; 87086

== ENCOUNTER 2023-12-06 10:54 | Outpatient (CLI) | payer MEDICARE ==
[2023-12-06 11:46] LABS: LITHIUM 0.73 mmol/L
== END 2023-12-06 10:55 | disposition home or self-care (01) ==
LOC: LAB 10:54
PROVIDERS: ATTEND Psychiatry & Neurology Psychiatry
DX: F31.81 Bipolar II disorder (principal); Z51.81 Encounter for therapeutic drug level monitoring
CPT/HCPCS: 36415; 80178

== ENCOUNTER 2024-01-10 08:00 | Outpatient (CLI) | payer MEDICARE ==
[2024-01-10 16:27] LABS: BILIRUBIN,URINE NEGATIVE (NEGATIVE); GLUCOSE, URINE (UA) NEGATIVE (NEGATIVE); KETONES,URINE (UA) NEGATIVE (NEGATIVE); LEUKOCYTE ESTERASE, URINE NEGATIVE (NEGATIVE); NITRITE,URINE NEGATIVE (NEGATIVE); OCCULT BLOOD,URINE NEGATIVE (NEGATIVE); PH,URINE 6.5 PH (5.0-7.5); PROTEIN,URINE NEGATIVE (NEGATIVE); UROBILINOGEN,URINE 0.2 (NORMAL) E.U./dL (NORMAL)
[2024-01-10 17:03] LABS: CLARITY,URINE CLEAR (CLEAR); RBC,URINE None Seen /HPF (0-5)
[2024-01-10 17:04] LABS: BACTERIA,URINE None Seen /HPF (None Seen); EPITHELIAL CELLS,UR RARE Transitional /HPF (<= Few); SQUAMOUS EPITHELIAL CELL,UR RARE Squamous (<= Few); WBC CLUMPS,URINE PRESENT
== END 2024-01-10 23:59 | disposition home or self-care (01) ==
LOC: LAB.WC 08:00
PROVIDERS: ATTEND Nurse Practitioner
DX: R30.0 Dysuria (principal)
CPT/HCPCS: 81001; 87086

== ENCOUNTER 2024-01-20 10:38 | Outpatient (CLI) | payer MEDICARE ==
[2024-01-20] MEDS ORDERED: iohexoL-300 100 ML VIAL ONE (10:44)
[2024-01-20] MEDS: iohexoL-300 100 ML VIAL IVP ONE (11:05)
--- NOTE | 2024-01-20 13:08 | CT Report ---
PROCEDURE: CT chest with contrast INDICATIONS: CHRONIC COUGH TECHNIQUE: Helical axial CT of the chest was obtained after an intravenous contrast injection and ref ormatted in multiple planes. Radiation dose reduction was achieved using automated exposure control, adjustment of mA and/or kV according to patient size. COMPARISON: None FINDINGS: Lungs and pleura: Lungs and pleural spaces are clear without pulmonary infiltrate, pneumothorax or pl eural effusion. Right middle lobe 1 to 2 mm peripheral nodule. No follow-up required. Mediastinum: Heart size is normal. No pericardial effusion. No large vessel abnormality. No mediastin al adenopathy by size criteria. Chest wall and lower neck: Thyroid is unremarkable. No axillary or supraclavicular adenopathy by size . Bones: No aggressive osseous abnormality. Upper Abdomen: Incidental left renal peripelvic cysts. No hydronephrosis. Small hypodensities in the liver likely reflect small cysts. IMPRESSION: No acute CT findings in the chest. No adenopathy or focal infiltrate. Reviewed by: Otto Johns MD on 01/20/2024 12:07 PM RENATA Approved by: Otto Johns MD on 01/20/2024 12:07 PM RENATA Station ID: [id number]
== END 2024-01-20 10:39 | disposition home or self-care (01) ==
LOC: DI 10:38
PROVIDERS: ATTEND Internal Medicine
DX: R05.3 Chronic cough (principal); Z79.899 Other long term (current) drug therapy
CPT/HCPCS: 71260; Q9967

== ENCOUNTER 2024-02-03 13:17 | Outpatient (CLI) | payer MEDICARE | END 2024-02-03 13:18 | disposition home or self-care (01) | LOC: RT 13:17 | PROVIDERS: ATTEND Internal Medicine | DX: R06.00 Dyspnea, unspecified (principal) | CPT/HCPCS: 94010; 94729 ==

== ENCOUNTER 2024-04-18 08:03 | Day surgery (SDC) | payer MEDICARE ==
--- NOTE | 2024-04-17 07:56 | HISTORY & PHYSICAL EXAMINATION ---
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 Social & Family Hx - Social History Does the pt smoke?: No Smoking Status: Never smoker Does the pt drink ETOH?: No Does the pt have substance abuse?: No - POLST Patient has POLST: No Meds/Allgy - Home Medications Home Medications: Ambulatory Orders Medication Instructions Recorded Confirmed QUEtiapine [SEROquel] 50 mg PO HS 10/30/21 04/17/24 lamoTRIgine [Lamictal Xr] 200 mg PO DAILY 10/30/21 04/17/24 [place] [facility] [Lithobid] 300 mg PO DAILY 04/17/24 04/17/24 buPROPion HCL [Bupropion Xl] 300 mg PO DAILY 04/17/24 04/17/24 - Allergies Allergies/Adverse Reactions: Allergies Allergy/AdvReac Type Severity Reaction Status Date / Time Sulfa (Sulfonamide AdvReac Mild Nausea Verified 04/17/24 13:34 Antibiotics) Impression/Plan - Problem List Problem List: History of Present Illness: 68 year old female referred for screening colonoscopy and EGD. Her last CS exam was 15 years ago at [facility] and she tells me several polyps were removed. She has no new lower GI symptoms and no FH of colon cancer. She was asked by her PCP to also undergo EGD but now would like to postpone that exam as her GERD symptoms have resolved with dietary change. Mallampati Score Class II: The soft palate, tonsils, and most of the uvula can be seen ASA Physical Status Classification System ASA I: A normal healthy patient Allergies: Allergies Reviewed: Done SULFA (SULFADIAZINE) (Critical) Social History Reviewed: Done Medications: Meds Reviewed: Done Suprep Bowel Prep Kit 17.5-3.13-1.6 gram recon soln (sodium,potassium,mag sulfates) 1 kit by mouth as directed one bottle day prior to procedure, second bottle day of procedure per instructions Estrace 0.01% (0.1 mg/gram) cream (estradiol) Insert 1 gram into vagina as directed Use nightly for two weeks, then every other night for two weeks, then 1-2 times a week. FISH OIL CONCENTRATE 1000 MG ORAL CAPSULE (OMEGA-3 FATTY ACIDS) Take one capsule by mouth twice daily; Route: ORAL TYLENOL EXTRA STRENGTH 500 MG ORAL TABLET (ACETAMINOPHEN) Take one tablet by mouth three times daily as needed for pain or fever; Route: ORAL ENDOCET 5-325 MG ORAL TABLET (OXYCODONE-ACETAMINOPHEN) ; Route: ORAL Problems: Problems Reviewed: Done GERD (gastroesophageal reflux disease) (ICD-530.81) (BRI71-M99.9) Encounter for screening for malignant neoplasm of colon (ICD-V76.51) (ICD10- Z12.11) Vaginal atrophy (ICD-627.3) (STB86-K92.2) Dysuria (ICD-788.1) (SHB30-D20.0) Contusion of right thigh, initial encounter (GFW39-C69.11xA) Presence of pessary (ICD-V45.89) (JAB04-O11.0) Vaginal itching (ICD-698.1) (VYK25-S48.8) Foul smelling vaginal discharge (ICD-623.5) (GFJ30-E18.8) Rectocele (ICD-618.04) (SKD71-E08.6) Cystocele (ICD-618.01) (DFS62-X20.10) Dyspnea on exertion (ICD-786.09) (TWG23-V04.09) Patellofemoral disorder of right knee (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 Denies any history of surgical complications. section Tube ligation Risk Factors-CCC: Smoked Tobacco Use: Former smoker Smokeless Tobacco Use: Never Passive Smoke Exposure: no Alcohol Use: yes Type: beer/wine Drinks per day: <1 Drug Use: no Review of Systems General Denies fever, anorexia and weight loss. GI Denies abdominal pain, nausea, vomiting, diarrhea, constipation, change in bowel habits, melena, hematochezia, jaundice, gas/bloating, indigestion/heartburn, dysphagia and odynophagia. Breast Denies left breast lump, right breast lump, nipple discharge, bloody discharge from nipple, breast pain, abnormal mammogram and breast enlargement. CV Denies chest pains, palpitations, syncope and peripheral edema. Resp Denies cough, shortness of breath, hemoptysis, wheezing and pleuritic chest pain. Vascular Denies varicose veins, leg swelling, leg redness, leg coolness, pain in legs with walking, resting leg pain, pain at night in legs and blue toe(s). Denies vaginal discharge, incontinence, dysuria, hematuria, urinary fr equency, abnormal vaginal bleeding, pelvic pain and . Wound Denies wound redness, wound discharge, wound pain, opening of wound, purulent discharge and bleeding from wound. Derm Denies suspicious lesions, new skin lesions, changing mole(s), rash, itching and history of skin cancer. Neuro Denies paralysis, paresthesias, seizures and frequent headaches. Psych Denies depression, anxiety, memory loss, suicidal ideation, hallucinations, paranoia, phobia and confusion. Endo Denies cold intolerance, heat intolerance, polydipsia, polyphagia, polyuria and unusual weight change. Heme Denies abnormal bruising, bleeding and enlarged lymph nodes. MS Denies back pain, sciatica and arthritis. Other Denies stoma redness, pain around stoma, discharge from stoma, pain from venous catheter, redness at vascular access site and purulent drainage from vascular access site. Vital Signs: Patient Profile: 68 Years Old Female Height: 58.5 inches Weight: 125 pounds BMI: 25.77 Temp: 97.8 degrees F oral Pulse rate: 77 / minute Resp: 20 per minute BP sittin / 78 Vitals Entered By: Christel Pineda RN (March 27, 2024 9:29 AM) Problems were reviewed with the patient during this visit. Medications were reviewed with the patient during this visit. Allergies were reviewed with the patient during this visit. Allergies: SULFA (SULFADIAZINE) (Critical) Physical Exam General: well developed, well nourished, in no acute distress Head: normocephalic and atraumatic Eyes: PERRLA/EOM intact; conjunctiva and sclera clear Ears: Normal hearing Nose: no deformity, discharge, inflammation, or lesions Mouth: no deformity or lesions with good dentition Neck: no masses, thyromegaly, or abnormal cervical nodes Lungs: clear bilaterally to A & P Heart: regular rate and rhythm, S1, S2 without murmurs, rubs, gallops, or clicks Abdomen: bowel sounds positive; abdomen soft and non-tender without masses, organomegaly, or hernias noted Msk: no deformity or scoliosis noted with normal posture and gait Pulses: pulses normal in all 4 extremities Extremities: no clubbing, cyanosis, edema, or deformity noted with normal full range of motion of all joints Neurologic: no focal deficits, CN II-XII grossly intact with normal reflexes, coordination, muscle strength and tone Skin: intact without lesions or rashes Cervical Nodes: no significant adenopathy Psych: alert and cooperative; normal mood and affect; normal attention span and concentration Blood Pressure: Today's BP: 136/78 mmHg Impression & Recommendations: Problem # 1: Encounter for screening for malignant neoplasm of colon (ICD- V76.51) (GHH65-F42.11) Assessment: Request for screening CS examination Plan: CS uner monitored sedation Orders: Visit Code Hold ([id number]) Consent: Anabelle has been counseled for the procedure, it's indications, risks, benefits and expected outcome as well as alternative therapies. We specifically discussed risks associated with anesthesia and insertion of the endoscope into the large intestine which includes bleeding and injury to the colon which may require surgical intervention. Anabelle understands, agrees, and consents to the proposed operative strategy and requests that we proceed with the procedure as outlined in our discussion. Glen Mccollum MD, [facility] General Surgery Service Problem # 2: GERD (gastroesophageal reflux disease) (ICD-530.81) (BFI66-R85.9) Assessment 2: GERD - resolved with dietary changes. If her symptoms recur, she should undergo EGD as well as start PPI medication Other Orders: Visit Code Hold ([id number]) Patient Portal: [facility] Date: 04/18/2024; 08 Chart Update: Patient examined, chart reviewed. There are no changes to the patient's clinical status that would preclude proceeding with the scheduled procedure today. Glen Mccollum MD, [facility] General Surgery Service
[~2024-04-18 08:03] MED LIST: PROPOFOL 500 MG/50 ML 500 MG/50 ML VIAL ONE
[2024-04-18] MEDS: LACTATED RINGERS 1,000 ML IV ONE ×2 (08:19→09:42)
--- NOTE | 2024-04-18 08:41 | ANESTHESIA ---
Pre-Anesthesia VS, & Labs - Diagnosis screening - Procedure colonoscopy Vital Signs: Temp Pulse Resp BP Pulse Ox O2 Flow Rate 36.3 C L 85 18 133/78 H 99 04/18/24 08:14 04/18/24 08:14 04/18/24 08:14 04/18/24 08:14 04/18/24 08:14 Height: 4 ft 11 in Weight (kg): 56 kg Body Mass Index: 24.9 BMI Classification: Normal - NPO Last Fluid Intake: 0600 Last Food Intake: >8hr - Is Patient ?: No Home Medications and Allergies Home Medications: Ambulatory Orders [place] [facility] [Lithobid] 300 mg PO DAILY 04/17/24 buPROPion HCL [Bupropion Xl] 300 mg PO DAILY 04/17/24 QUEtiapine [SEROquel] 50 mg PO HS 10/30/21 lamoTRIgine [Lamictal Xr] 200 mg PO DAILY 10/30/21 [place] [facility] [Lithobid] 300 mg PO DAILY 04/17/24 buPROPion HCL [Bupropion Xl] 300 mg PO DAILY 04/17/24 Allergies/Adverse Reactions: Allergies Allergy/AdvReac Type Severity Reaction Status Date / Time Sulfa (Sulfonamide AdvReac Mild Nausea Verified 04/17/24 13:34 Antibiotics) Anes History & Medical History - Anesthetic History Anesthesia Complications: reports: No previous complications - Medical History Cardiovascular: reports: None Pulmonary: reports: None Gastrointestinal: reports: GERD Urinary: reports: None Neuro: reports: None Musculoskeletal: reports: Rheumatoid arthritis Endocrine/Autoimmune: reports: None Blood Disorders: reports: None Skin: reports: None Smoking Status: Never smoker Psychosocial: reports: No issues indicated - Surgical History Gynecologic: reports: section Orthopedic: reports: Other Results - EKG Results EKG Comparison: Reviewed EKG Exam General: Alert Dental: WNL Mouth Openin Fingerbreadth Neck Mobility: Normal Mallampati classification: II Thyromental Distance: less than 4 cm Respiratory: Lungs clear Plan Anesthesia Type: Total IV Consent for Procedure(s) Verified and Reviewed: Yes Code Status: Attempt Resuscitation ASA classification: 2-Mild systemic disease Is this case an emergency?: No
[2024-04-18 10:07] VITALS: BP 109/76; O2SAT 100
--- NOTE | 2024-04-18 15:37 | ANESTHESIA POST OP EVALUATION ---
Anesthesia Post Eval - Post Anesthesia Eval Vitals: Last Vital Signs Temp 36.4 C L 04/18/24 10:05 Pulse 68 04/18/24 10:05 Resp 16 04/18/24 10:05 BP 109/76 04/18/24 10:05 Pulse Ox 100 04/18/24 10:05 O2 Flow Rate CV Function Including HR & BP: Stable Pain Control: Satisfactory Nausea & Vomiting: Negative Mental Status: Baseline Respiratory Status: Airway Patent Hydration Status: Satisfactory Anesthesia Complications: None
== END 2024-04-18 08:04 | disposition home or self-care (01) ==
LOC: SDS 08:03
PROVIDERS: ATTEND Surgery
DX: Z12.11 Encounter for screening for malignant neoplasm of colon (principal); Z86.010 Personal history of colon polyps; Z87.891 Personal history of nicotine dependence
CPT/HCPCS: G0121; J7120

== ENCOUNTER 2024-04-26 09:06 | Outpatient (CLI) | payer MEDICARE | END 2024-04-26 09:07 | disposition home or self-care (01) | LOC: DI 09:06 | PROVIDERS: ATTEND Internal Medicine | DX: R60.0 Localized edema (principal); R05.3 Chronic cough; R94.2 Abnormal results of pulmonary function studies; R06.00 Dyspnea, unspecified | CPT/HCPCS: 93307 ==